=== PATIENT | female | born 1955 | race Caucasian/White ===

== ENCOUNTER 2017-04-23 13:48 | Day surgery (SDC) | payer OTHER ==
[~2017-04-23 13:48] MED LIST: LACTATED RINGER'S 1,000 ML IV
[2017-04-23] MEDS ORDERED: BUPIVACAINE 0.5% (SDV) 30 ML INJ (16:23)
[2017-04-23] MEDS ORDERED: ROCURONIUM 50 MG INJ (17:33)
[2017-04-23] MEDS ORDERED: FENTAnyl 50 MCG/ML VIAL ×2 (17:33→17:59)
[2017-04-23] MEDS ORDERED: MIDAZOLAM 1 MG/ML 2 ML INJ (17:33)
[2017-04-23] MEDS ORDERED: PROPOFOL 20 ML (17:33)
[2017-04-23] MEDS ORDERED: LIDOCAINE 1% (MDV) 20 ML INJ (17:34)
[2017-04-23] MEDS ORDERED: CEFAZOLIN 1 GM INJ (17:57)
[2017-04-23] MEDS: POLYMYXIN/BACITRACIN 1L IRRIG (18:21)
[2017-04-23] MEDS ORDERED: ONDANSETRON 4 MG INJ ×2 (18:34→20:08)
[2017-04-23] MEDS ORDERED: METOCLOPRAMIDE 10 MG INJ (18:34)
[2017-04-23] MEDS ORDERED: FAMOTIDINE 20 MG INJ (18:35)
[2017-04-23] MEDS ORDERED: DEXAMETHASONE 4 MG/ML 1 ML INJ (18:35)
[2017-04-23] MEDS ORDERED: SUGAMMADEX SODIUM 200 MG/2 ML VIAL IV (19:50)
[2017-04-23] MEDS ORDERED: HYDROmorphONE (0.2 MG/ML) 10ML SYG IV (20:08)
[2017-04-23] MEDS ORDERED: hydrALAzine 20 MG INJ IV (20:30)
[2017-04-23] MEDS ORDERED: LABETALOL HCL 20MG INJ IV (20:30)
[2017-04-23] MEDS: HYDROmorphONE (0.2 MG/ML) 10ML SYG IV (20:35)
[2017-04-23] MEDS: ONDANSETRON 4 MG INJ IV (20:35)
[2017-04-23] MEDS: OXYCODONE/ACETAMINOPHEN (5/325) TAB PO (20:41)
== END 2017-04-23 21:40 | disposition home or self-care (01) ==
LOC: SDS 13:48
DX: M19.031 Primary osteoarthritis, right wrist (principal); M19.041 Primary osteoarthritis, right hand; M25.331 Other instability, right wrist; G56.01 Carpal tunnel syndrome, right upper limb
CPT/HCPCS: 25447

== ENCOUNTER 2018-10-26 17:58 | Emergency (ER) | payer OTHER ==
[2018-10-26 20:09] LABS: ADD MAN DIFF? NO
[2018-10-26 20:10] LABS: BASOPHIL # 0.1 10^3/ul (0.0-0.1); EOSINOPHILS # 0.3 10^3/ul (0.0-0.5); EOSINOPHILS % 2.9 % (0.0-7.0); HEMATOCRIT 42.9 % (37.0-47.0); HEMOGLOBIN 13.7 g/dl (12.0-16.0); LYMPHOCYTES % 21.4 % (15.0-51.0); MEAN CORPUSCULAR HEMOGLOBIN 27.1 pg (29.0-33.0); MEAN CORPUSCULAR HGB CONC 31.9 g/dl (32.0-37.0); MEAN CORPUSCULAR VOLUME 84.8 fl (82.0-101.0); MEAN PLATELET VOLUME 7.9 fl (7.4-10.4); MONOCYTE # 0.6 10^3/ul (0.3-0.9); MONOCYTES % 6.4 % (0.0-11.0); NEUTROPHIL # 6.3 10^3/ul (1.6-7.5); NEUTROPHILS % 68.1 % (39.0-77.0); PLATELET COUNT 319 10^3/UL (140-415); RED BLOOD COUNT 5.06 10^6/ul (4.20-5.40); RED CELL DISTRIBUTION WIDTH 13.6 % (11.5-14.5)
[2018-10-26 20:10] LABS: WHITE BLOOD COUNT 9.2 10^3/ul (4.8-10.8)
[2018-10-26] MEDS: SOD CHLORIDE 0.9% 1,000 ML IV (20:21)
[2018-10-26 20:37] LABS: ADD UMIC YES; UR ASCORBIC ACID NEGATIVE (NEGATIVE); UR BILIRUBIN (Dip) NEGATIVE (NEGATIVE); UR BLOOD (Dip) NEGATIVE (NEGATIVE); UR CLARITY CLEAR (CLEAR); UR COLOR STRAW (YELLOW); UR GLUCOSE (Dip) NEGATIVE (NEGATIVE); UR KETONES (Dip) NEGATIVE (NEGATIVE); UR LEUKOCYTE ESTERASE (Dip) TRACE Leu/ul (NEGATIVE); UR NITRITE (Dip) NEGATIVE (NEGATIVE); UR RBC 0 /HPF (0-5); UR SPECIFIC GRAVITY (Dip) 1.006 (1.003-1.030); UR TOTAL PROTEIN (Dip) NEGATIVE (NEGATIVE); UR UROBILINOGEN (Dip) NEGATIVE (NEGATIVE); UR WBC 5 /HPF (0-5)
[2018-10-26 20:40] LABS: ALANINE AMINOTRANSFERASE 16 IU/L (13-69); ALBUMIN 3.8 g/dl (3.3-4.9); ALBUMIN/GLOBULIN RATIO 1.05; ALKALINE PHOSPHATASE 92 IU/L (42-121); ANION GAP 7 (5-13); ASPARTATE AMINO TRANSFERASE 17 IU/L (15-46); BILIRUBIN,INDIRECT 0.3 mg/dl (0-1.1); BILIRUBIN,TOTAL 0.3 mg/dl (0.2-1.3); BLOOD UREA NITROGEN 11 mg/dl (7-20); CARBON DIOXIDE 28 mmol/L (21-31); CHLORIDE 105 mmol/L (97-110); CREATININE 0.84 mg/dl (0.44-1.00); Estimated GFR > 60 mL/min (>60); GLUCOSE 122 mg/dl (70-220); LIPASE 77 U/L (23-300); POTASSIUM 4.1 mmol/L (3.5-5.1); SODIUM 140 mmol/L (135-144); TOTAL PROTEIN 7.4 g/dl (6.1-8.1)
[2018-10-26 20:51] LABS: TROPONIN-I < 0.012 ng/ml (0.000-0.120)
== END 2018-10-26 21:56 | disposition left against medical advice (07) ==
LOC: E/R 17:58
DX: N39.0 Urinary tract infection, site not specified (principal); R42 Dizziness and giddiness
CPT/HCPCS: 36415; 70450; 71045; 80053; 81001; 83690; 84484; 85025; 93005; 96360; 99285-25

== ENCOUNTER 2018-12-08 13:34 | Day surgery (SDC) | payer OTHER ==
[2018-12-08] MEDS ORDERED: SEVOFLURANE 15 MIN (16:17)
[2018-12-08] MEDS ORDERED: POLYMYXIN/BACITRACIN 1L IRRIG (16:17)
[2018-12-08] MEDS ORDERED: CEFAZOLIN 1 GM INJ (16:17)
[2018-12-08] MEDS ORDERED: HYDROmorphONE 2 MG/ML SYG (16:33)
[2018-12-08] MEDS ORDERED: PROPOFOL 20 ML (16:33)
[2018-12-08] MEDS ORDERED: FENTAnyl 50 MCG/ML VIAL (16:33)
[2018-12-08] MEDS: BUPIVACAINE 0.5% (SDV) 30 ML INJ (16:56)
[2018-12-08] MEDS: LIDOCAINE 1% (MPF) 30 ML INJ (16:56)
[2018-12-08] MEDS ORDERED: ONDANSETRON 4 MG INJ ×2 (17:19→18:58)
[2018-12-08] MEDS ORDERED: DEXAMETHASONE 4 MG/ML 5 ML INJ (17:19)
[2018-12-08] MEDS ORDERED: HYDROmorphONE 1 MG/5 ML IV SYRINGE IV ×3 (18:35→19:30)
[2018-12-08] MEDS ORDERED: METOCLOPRAMIDE 10 MG INJ IV (19:30)
[2018-12-08] MEDS ORDERED: TRIMETHOBENZAMIDE 100 MG/ML VIAL IM (19:30)
[2018-12-08] MEDS ORDERED: ONDANSETRON 4 MG INJ IV (19:30)
[2018-12-08] MEDS: FENTAnyl 50 MCG/ML VIAL IV ×2 (19:37→19:40)
[2018-12-08] MEDS: HYDROmorphONE 0.5 MG/0.5 ML SYG IV (19:39)
[2018-12-08] MEDS ORDERED: HYDROmorphONE 0.5 MG/0.5 ML SYG IV (20:00)
== END 2018-12-08 21:08 | disposition home or self-care (01) ==
LOC: SDS 13:34
DX: S63.8X1D Sprain of other part of right wrist and hand, subsequent encounter (principal); X58.XXXD Exposure to other specified factors, subsequent encounter; M25.331 Other instability, right wrist; G56.01 Carpal tunnel syndrome, right upper limb
CPT/HCPCS: 25320; 73110-RT